=== PATIENT | male | born 1965 ===

== ENCOUNTER 2020-11-14 05:59 | Day surgery (SDC) | payer OTHER ==
[~2020-11-14 05:59] MED LIST: COZAAR100 MG PO; JANUMET XR 1001 EACH PO; NORVASC5 MG PO
[2020-11-14] MEDS ORDERED: CEFADROXIL500 MG PO (15:10)
[2020-11-14] MEDS ORDERED: ULTRACET PO (15:10)
[2020-11-14] MEDS ORDERED: ASA325 M1 PO (15:10)
== END 2020-11-14 18:45 | disposition home or self-care (01) ==
LOC: CIR.AMB 05:59
PROVIDERS: ATTEND Orthopaedic Surgery
DX: S83.231A Complex tear of medial meniscus, current injury, right knee, initial encounter (principal); S83.281A Other tear of lateral meniscus, current injury, right knee, initial encounter; M94.261 Chondromalacia, right knee; M23.41 Loose body in knee, right knee; Z20.822 Contact with and (suspected) exposure to COVID-19; M65.861 Other synovitis and tenosynovitis, right lower leg